=== PATIENT | female | born 1990 | race Caucasian/White ===

== ENCOUNTER 2016-10-08 16:31 | Emergency (ER) | payer SELFPAY ==
[~2016-10-08] VITALS: Ht 177.8 cm; Wt 74.8 kg
--- NOTE | 2016-10-08 17:04 | ED Integumentary General ---
General Chief Complaint: Bite-Animal/Human/Insect Stated Complaint: SPIDER BITE L LEG Nursing Triage Note: ARRIVED VIA AMB TO ROOM 08 WITH COMPLAINTS OF SPIDER BITE LEFT INNER THIGH. PT HAS MARKED THE INCREASE OF REDNESS WITH A MARKER. Source: patient Exam Limitations: no limitations History of Present Illness Time seen by provider: 16:50 Initial Comments Here with report of possible spider bite to the left inner thigh that occurred a couple days ago. Patient admits to crawling under her porch to fix a plumbing issue a couple days ago and thinks it may have been ordered occurred. Noted redness increasing yesterday. She has the circled. Redness increased this morning and that is also circled but does not appear to be exceeding that kl[place]. There is a central dark black core of approximately 1 x 2 mm. States that she feels a little shaky. Does report history of anemia. Timing/Duration: yesterday, getting worse Severity: mild Location: extremities Possible Cause: insect bite Associated Symptoms: edema, No fever, swelling/mass/lumps, No tingling Allergies and Home Medications Allergies Coded Allergies: No Known Drug Allergies (Unverified , 10/08/16) Home Medications Sulfamethoxazole/Trimethoprim 1 Each Tablet, 1 EACH PO BID, #14 Ref 0 Prescribed by: JESUSITA ALBERTS on 10/08/16 1705 Constitutional: see HPI, No chills, No fever, weakness Respiratory: no symptoms reported Cardiovascular: no symptoms reported Gastrointestinal: no symptoms reported, No nausea, No vomiting Skin: see HPI, change in color, lesions Psychiatric/Neurological: See HPI Past Exiucvr-Pvitib-Kgjpmz Hx Patient Social History Alcohol Use: Occasionally Uses Recreational Drug Use: No Smoking Status: Current Everyday Smoker Type Used: Cigarettes Recent Foreign Travel: No Contact w/Someone Who Travel: No Recent Infectious Disease Expo: No Surgeries HX Surgeries: Yes Surgeries: Appendectomy Respiratory Hx Respiratory Disorders: No Cardiovascular Hx Cardiac Disorders: No Neurological Hx Neurological Disorders: No Genitourinary Hx Genitourinary Disorders: No Gastrointestinal Hx Gastrointestinal Disorders: No Musculoskeletal Hx Musculoskeletal Disorders: No Blood Transfusions Hx Blood Disorders: Yes (anemia) Hx of Blood Transfusion 2 units transfused previously Reviewed Nursing Assessment Reviewed/Agree w Nursing PMH: Yes Family Medical History Significant Family History: No Pertinent Family Hx Physical Exam Vital Signs Vital Sign - Last 12Hours 10/08/16 16:50 Temp 98.6 Pulse 83 Resp 16 B/P (MAP) 137/90 Pulse Ox 98 Capillary Refill : Less Than 3 Seconds General Appearance: WD/WN, no apparent distress Cardiovascular: regular rate, rhythm, no murmur Respiratory: lungs clear, normal breath sounds Extremities: normal range of motion, no pedal edema Neurologic/Psychiatric: alert, oriented x 3 Skin: warm/dry Skin Problem Location: lower extremities Skin Problem Character: erythema, warm, other (5 x 5 cm area of erythema with 2 x 2 centimeter area of induration surrounding a central 1 x 2 mm area of blackened core. No obvious fluctuance.) Progress/Results/Core Measures Results/Orders Lab Results Laboratory Tests Test 10/08/16 17:07 Range/Units White Blood Count 7.4 4.3-11.0 10^3/uL Red Blood Count 4.75 4.35-5.85 10^6/uL Hemoglobin 13.9 11.5-16.0 G/DL Hematocrit 42 35-52 % Mean Corpuscular Volume 88 80-99 FL Mean Corpuscular Hemoglobin 29 25-34 PG Mean Corpuscular Hemoglobin Concent 33 32-36 G/DL Red Cell Distribution Width 13.0 10.0-14.5 % Platelet Count 223 130-400 10^3/uL Mean Platelet Volume 9.9 7.4-10.4 FL Neutrophils (%) (Auto) 55 42-75 % Lymphocytes (%) (Auto) 36 12-44 % Monocytes (%) (Auto) 7 0-12 % Eosinophils (%) (Auto) 1 0-10 % Basophils (%) (Auto) 0 0-10 % Neutrophils # (Auto) 4.1 1.8-7.8 X 10^3 Lymphocytes # (Auto) 2.7 1.0-4.0 X 10^3 Monocytes # (Auto) 0.6 0.0-1.0 X 10^3 Eosinophils # (Auto) 0.1 0.0-0.3 10^3/uL Basophils # (Auto) 0.0 0.0-0.1 10^3/uL My Orders Orders - JESUSITA ALBERTS MD Cbc With Automated Diff (10/08/16 16:57) Vital Signs/I&O Vital Sign - Last 12Hours 10/08/16 16:50 Temp 98.6 Pulse 83 Resp 16 B/P (MAP) 137/90 Pulse Ox 98 Blood Pressure Mean: 106 Progress Note : Progress Note Seen and evaluated. CBC ordered. Antibiotic ointment and Band-Aid over wound. Discharged home with return precautions. Patient verbalize understanding instructions and agreement with plan. Departure Impression Impression: Primary Impression: Spider bite wound Qualified Codes: T63.304A - Toxic effect of unspecified spider venom, undetermined, initial encounter Disposition: HOME, SELF-CARE Condition: Stable Departure-Patient Inst. Referrals: NO,LOCAL PHYSICIAN (PCP/Family) Primary Care Physician Patient Instructions: Spider Bites Add. Discharge Instructions: All discharge instructions reviewed with patient and/or family. Voiced understanding. Take medications as directed. You may use ibuprofen 800 mg every 8 hours as needed for pain. You may use Tylenol 1000 mg every 8 hours as needed for pain. Drink plenty of fluids. Follow-up with your Dr. in a few days for recheck as needed. Return for worse pain, swelling, weakness, foul-smelling drainage, markedly increasing redness or other concerns as needed. Use antibiotic ointment and and 8 over wound twice daily for the next 7 days. Scripts Sulfamethoxazole/Trimethoprim (Sulfamethoxazole-Tmp Ds Tablet) 1 Each Tablet 1 EACH PO BID, #14 TAB 0 Refills Prov: JESUSITA ALBERTS MD 10/08/16 JESUSITA ALBERTS MD Oct 08, 2016 17:04
[2016-10-08] MEDS ORDERED: SULF-222 PO (17:05)
[2016-10-08 17:17] LABS: BASOPHILS % (AUTO) 0 % (0-10); EOSINOPHILS # (AUTO) 0.1 10^3/uL (0.0-0.3); EOSINOPHILS % (AUTO) 1 % (0-10); LYMPHOCYTES # (AUTO) 2.7 X 10^3 (1.0-4.0); LYMPHOCYTES % (AUTO) 36 % (12-44); MEAN CORPUSCULAR HEMOGLOBIN 29 PG (25-34); MEAN CORPUSCULAR HGB CONC 33 G/DL (32-36); MEAN CORPUSCULAR VOLUME 88 FL (80-99); MEAN PLATELET VOLUME 9.9 FL (7.4-10.4); MONOCYTES # (AUTO) 0.6 X 10^3 (0.0-1.0); MONOCYTES % (AUTO) 7 % (0-12); NEUTROPHILS # (AUTO) 4.1 X 10^3 (1.8-7.8); NEUTROPHILS % (AUTO) 55 % (42-75); PLATELET COUNT 223 10^3/uL (130-400); RED BLOOD COUNT 4.75 10^6/uL (4.35-5.85); WHITE BLOOD COUNT 7.4 10^3/uL (4.3-11.0)
[2016-10-08 17:28] VITALS: BP 137/90
== END 2016-10-08 17:28 | disposition home or self-care (01) ==
LOC: EDUNIT# 16:31 → ER 16:34
DX: S70.362A Insect bite (nonvenomous), left thigh, initial encounter (principal); F17.210 Nicotine dependence, cigarettes, uncomplicated; Z90.49 Acquired absence of other specified parts of digestive tract; Z86.2 Personal history of diseases of the blood and blood-forming organs and certain disorders involving the immune mechanism; W57.XXXA Bitten or stung by nonvenomous insect and other nonvenomous arthropods, initial encounter
CPT/HCPCS: 36415; 85025; 99283

== ENCOUNTER 2017-01-26 20:12 | Emergency (ER) | payer SELFPAY ==
[~2017-01-26] VITALS: Ht 180.3 cm; Wt 79.4 kg
[~2017-01-26 20:12] MED LIST: SULF-222 PO
--- NOTE | 2017-01-26 20:23 | ED EENT ---
History of Present Illness General Chief Complaint: Dental Problems/Pain Stated Complaint: SWOLLEN JAW Source: patient Exam Limitations: no limitations History of Present Illness Time seen by provider: 20:21 Initial Comments Right lower jaw swelling x12 hours. No fevers. Has had a tooth in this area bothering her for quite a while. Does not have a dentist. Timing/Duration: abrupt Severity: moderate Location: dental Associated Symptoms: facial pain/swelling Allergies and Home Medications Allergies Coded Allergies: No Known Drug Allergies (Unverified , 10/08/16) Home Medications Sulfamethoxazole/Trimethoprim 1 Each Tablet, 1 EACH PO BID, #14 Ref 0 Prescribed by: JESUSITA ALBERTS on 10/08/16 1311 Review of Systems Constitutional: see HPI Eyes: No Symptoms Reported Ears: No Symptoms Reported Nose: no symptoms reported Mouth: see HPI, pain, swelling Throat: no symptoms reported Respiratory: no symptoms reported Cardiovascular: no symptoms reported Gastrointestinal: no symptoms reported Musculoskeletal: no symptoms reported Skin: no symptoms reported Neurological: No Symptoms Reported Hematologic/Lymphatic: No Symptoms Reported Immunological/Allergic: no symptoms reported Past Edeoxzz-Uezgcr-Ujuixv Hx Patient Social History Type Used: Cigarettes Recent Foreign Travel: No Contact w/Someone Who Travel: No Recent Hopitalizations: No Surgeries History of Surgeries: Yes Surgeries: Appendectomy Respiratory History of Respiratory Disorde: No Cardiovascular History of Cardiac Disorders: No Neurological History of Neurological Disord: No Genitourinary History of Genitourinary Disor: No Gastrointestinal History of Gastrointestinal Di: No Musculoskeletal History of Musculoskeletal Dis: No Endocrine History of Endocrine Disorders: No HEENT History of HEENT Disorders: No Cancer History of Cancer: No Psychosocial History of Psychiatric Problem: No Integumentary History of Skin or Integumenta: Yes Skin/Integumentary Disorders: Recent Skin Changes Blood Transfusions History of Blood Disorders: Yes (ANEMIA WITH BLOOD TRANSFUSION X2) Family Medical History Significant Family History: No Pertinent Family Hx Physical Exam Vital Signs Vital Sign - Last 12Hours 01/26/17 20:16 Temp 98.6 Pulse 99 Resp 18 B/P (MAP) 134/95 Pulse Ox 98 O2 Delivery Room Air General Appearance: WD/WN, no apparent distress Eyes: bilateral eye normal inspection, bilateral eye PERRL, bilateral eye EOMI Ears: bilateral ear auricle normal, bilateral ear canal normal, bilateral ear TM normal Mouth/Throat: normal mouth inspection, pharynx normal, other (Right mandible swelling but no fluctuance on buccal mucosa to suggest drainable abscess) Neck: non-tender, full range of motion Respiratory: normal breath sounds, no respiratory distress, no accessory muscle use Gastrointestinal: normal bowel sounds, non tender, soft Neurologic/Psychiatric: alert, normal mood/affect, oriented x 3 Skin: normal color, warm/dry Progress/Results/Core Measures Results/Orders Lab Results Laboratory Tests Test 01/26/17 20:27 Range/Units White Blood Count 10.2 4.3-11.0 10^3/uL Red Blood Count 4.15 L 4.35-5.85 10^6/uL Hemoglobin 12.8 11.5-16.0 G/DL Hematocrit 38 35-52 % Mean Corpuscular Volume 91 80-99 FL Mean Corpuscular Hemoglobin 31 25-34 PG Mean Corpuscular Hemoglobin Concent 34 32-36 G/DL Red Cell Distribution Width 13.3 10.0-14.5 % Platelet Count 208 130-400 10^3/uL Mean Platelet Volume 10.0 7.4-10.4 FL Neutrophils (%) (Auto) 71 42-75 % Lymphocytes (%) (Auto) 22 12-44 % Monocytes (%) (Auto) 7 0-12 % Eosinophils (%) (Auto) 1 0-10 % Basophils (%) (Auto) 0 0-10 % Neutrophils # (Auto) 7.3 1.8-7.8 X 10^3 Lymphocytes # (Auto) 2.2 1.0-4.0 X 10^3 Monocytes # (Auto) 0.7 0.0-1.0 X 10^3 Eosinophils # (Auto) 0.1 0.0-0.3 10^3/uL Basophils # (Auto) 0.0 0.0-0.1 10^3/uL Sodium Level 138 135-145 MMOL/L Potassium Level 4.0 3.6-5.0 MMOL/L Chloride Level 103 98-107 MMOL/L Carbon Dioxide Level 26 21-32 MMOL/L Anion Gap 9 5-14 MMOL/L Blood Urea Nitrogen 7 7-18 MG/DL Creatinine 0.72 0.60-1.30 MG/DL Estimat Glomerular Filtration Rate > 60 BUN/Creatinine Ratio 10 Glucose Level 88 70-105 MG/DL Calcium Level 9.5 8.5-10.1 MG/DL My Orders Orders - ULI HOUGH APRN Cbc With Automated Diff (01/26/17 20:20) Basic Metabolic Panel (01/26/17 20:20) Saline Lock/Iv-Start (01/26/17 20:20) Clindamycin Injection (Cleocin Injection (01/26/17 20:30) Ketorolac Injection (Toradol Injection) (01/26/17 20:30) Ct Maxillofacial W (01/26/17 20:20) Iohexol Injection (Omnipaque 350 Mg/Ml 1 (01/26/17 20:30) Ns (Ivpb) (Sodium Chloride 0.9% Ivpb Bag (01/26/17 20:30) Medications Given in ED Current Medications Medications Dose Ordered Sig/Rosa Route Start Time Stop Time Status Last Admin Dose Admin Clindamycin Phosphate 900 mg/ Sodium Chloride 56 ml @ 100 mls/hr ONCE ONCE IV 01/26/17 20:30 01/26/17 21:03 01/26/17 20:53 100 MLS/HR Iohexol 100 ml ONCE ONCE IV 01/26/17 20:30 01/26/17 20:31 UNV 01/26/17 20:39 80 ML Ketorolac Tromethamine 30 mg ONCE ONCE IVP 01/26/17 20:30 01/26/17 20:31 DC 01/26/17 20:54 30 MG Sodium Chloride 100 ml ONCE ONCE IV 01/26/17 20:30 01/26/17 20:31 UNV 01/26/17 20:39 100 ML Vital Signs/I&O Vital Sign - Last 12Hours 01/26/17 20:16 Temp 98.6 Pulse 99 Resp 18 B/P (MAP) 134/95 Pulse Ox 98 O2 Delivery Room Air Diagnostic Imaging Diagonstic Imaging: CT Comments NAME: RIKY FREGOSO [facility] REC#: [id number] PT STATUS: REG ER : 1990 PHYSICIAN: ULI HOUGH APRN ADMIT DATE: 01/26/17/ER Draft Date of Exam:01/26/17 CT MAXILLOFACIAL W PROCEDURE: CT maxillofacial with contrast. TECHNIQUE: After intravenous administration of contrast, axial images were obtained through the face and reformatted into coronal and sagittal planes. INDICATION: Right jaw swelling. COMPARISON: None FINDINGS: There may be slight asymmetric stranding of the subcutaneous soft tissues of the right cheek and perhaps slight asymmetric skin thickening. No distinct measurable mass is identified. Additionally, there is no focal fluid collection. There is no soft tissue emphysema. No unexpected radiopaque foreign bodies are seen. No other focal soft tissue masses are identified. Cervical lymph nodes are mildly prominent, bilaterally. There is a 0.9 x 1.3 cm perimandibular lymph node just anterior to the right submandibular glands (image 17, series 7). Prominent cervical lymph node on the left is identified just anterior to the sternocleidomastoid muscle at the level of angle of mandible and measures 1.8 x 1.2 cm. Included portions of paranasal sinuses show mucosal retention cyst versus polyp in left maxillary sinus and minimal opacification of posterior left ethmoid air cell. No abnormal air-fluid levels are seen. There is no CT evidence of acute fracture or dislocation of the facial bones. Multiple dental caries, however, are identified. There are multiple areas of prominent periapical lucency involving the bilateral mandibular molars concerning for periapical abscesses. Again, no soft tissue fluid collections are seen to suggest soft tissue abscess. IMPRESSION: 1. Multiple dental caries. Again, there are multiple periapical lucencies suggestive of periapical abscesses, greatest involving the right mandibular molars. 2. There is mild asymmetric soft tissue stranding and skin thickening of the right cheek overlying the right mandible. This is likely reactive to patient's dental caries. There is no distinct CT evidence of soft tissue abscess. 3. Prominent cervical lymph nodes bilaterally; possibly reactive as well. Dictated on workstation # [id number] Dict: 01/26/172051 Trans: 01/26/172099 [id number] Interpreted by: VICTOR HUGO OLSON MD Electronically signed by: Departure Impression Impression: Primary Impression: Dental caries Disposition: HOME, SELF-CARE Condition: Stable Departure-Patient Inst. Decision time for Depature: 21:03 Referrals: NO,LOCAL PHYSICIAN (PCP/Family) Primary Care Physician Patient Instructions: Tooth Abscess (DC) Add. Discharge Instructions: 1. Warm compresses to this area 2. Return to ER for concerns 3. Follow-up with your dentist tomorrow. If you do not have a dentist go to the [facility] on and [address] to schedule an appointment. Return to ER for any fevers. Once these pain pills ran out, take Tylenol and Motrin All discharge instructions reviewed with patient and/or family. Voiced understanding. Scripts Hydrocodone/Acetaminophen ([place] 5-325 Tablet) 1 Each Tablet 1 EACH PO Q4H Y for PAIN-SEVERE TO BREAKTHROUGH, #14 TAB Do not fill unless penicillin is also filled Prov: ULI HOUGH APRN 01/26/17 Penicillin V Potassium (Penicillin V Potassium) 500 Mg Tablet 500 MG PO QID, #28 TAB Prov: ULI HOUGH APRN 01/26/17 ULI HOUGH APRN Jan 26, 2017 20:23
[2017-01-26] MEDS ORDERED: NS 100 ML (IVPB) BAG IV ONE (20:30)
[2017-01-26] MEDS ORDERED: KETOROLAC 30 MG/ML VIAL IVP ONE (20:30)
[2017-01-26] MEDS ORDERED: IOHEXOL 350 MG/ML 100 ML (OMNIPAQUE 350) VIAL IV ONE (20:30)
[2017-01-26] MEDS ORDERED: CLINDAMYCIN INJECTION 900 MG in NS (IVPB) 50 ML IV ONE (20:30)
[2017-01-26 20:43] LABS: BASOPHILS % (AUTO) 0 % (0-10); EOSINOPHILS # (AUTO) 0.1 10^3/uL (0.0-0.3); EOSINOPHILS % (AUTO) 1 % (0-10); LYMPHOCYTES # (AUTO) 2.2 X 10^3 (1.0-4.0); LYMPHOCYTES % (AUTO) 22 % (12-44); MEAN CORPUSCULAR HEMOGLOBIN 31 PG (25-34); MEAN CORPUSCULAR HGB CONC 34 G/DL (32-36); MEAN CORPUSCULAR VOLUME 91 FL (80-99); MONOCYTES # (AUTO) 0.7 X 10^3 (0.0-1.0); MONOCYTES % (AUTO) 7 % (0-12); NEUTROPHILS # (AUTO) 7.3 X 10^3 (1.8-7.8); NEUTROPHILS % (AUTO) 71 % (42-75); PLATELET COUNT 208 10^3/uL (130-400); RED BLOOD COUNT 4.15 10^6/uL (4.35-5.85); RED CELL DISTRIBUTION WIDTH 13.3 % (10.0-14.5); WHITE BLOOD COUNT 10.2 10^3/uL (4.3-11.0)
[2017-01-26 20:51] LABS: ANION GAP 9 MMOL/L (5-14); BLOOD UREA NITROGEN 7 MG/DL (7-18); BUN/CREATININE RATIO 10; CALCIUM 9.5 MG/DL (8.5-10.1); CARBON DIOXIDE 26 MMOL/L (21-32); CHLORIDE 103 MMOL/L (98-107); CREATININE SERUM 0.72 MG/DL (0.60-1.30); GFR ESTIMATED > 60; GLUCOSE 88 MG/DL (70-105); SODIUM 138 MMOL/L (135-145)
--- NOTE | 2017-01-26 21:01 | Diagnostic Imaging Report ---
PROCEDURE: CT maxillofacial with contrast. TECHNIQUE: After intravenous administration of contrast, axial images were obtained through the face and reformatted into coronal and sagittal planes. INDICATION: Right jaw swelling. COMPARISON: None FINDINGS: There may be slight asymmetric stranding of the subcutaneous soft tissues of the right cheek and perhaps slight asymmetric skin thickening. No distinct measurable mass is identified. Additionally, there is no focal fluid collection. There is no soft tissue emphysema. No unexpected radiopaque foreign bodies are seen. No other focal soft tissue masses are identified. Cervical lymph nodes are mildly prominent, bilaterally. There is a 0.9 x 1.3 cm perimandibular lymph node just anterior to the right submandibular glands (image 17, series 7). Prominent cervical lymph node on the left is identified just anterior to the sternocleidomastoid muscle at the level of angle of mandible and measures 1.8 x 1.2 cm. Included portions of paranasal sinuses show mucosal retention cyst versus polyp in left maxillary sinus and minimal opacification of posterior left ethmoid air cell. No abnormal air-fluid levels are seen. There is no CT evidence of acute fracture or dislocation of the facial bones. Multiple dental caries, however, are identified. There are multiple areas of prominent periapical lucency involving the bilateral mandibular molars concerning for periapical abscesses. Again, no soft tissue fluid collections are seen to suggest soft tissue abscess. IMPRESSION: 1. Multiple dental caries. Again, there are multiple periapical lucencies suggestive of periapical abscesses, greatest involving the right mandibular molars. 2. There is mild asymmetric soft tissue stranding and skin thickening of the right cheek overlying the right mandible. This is likely reactive to patient's dental caries. There is no distinct CT evidence of soft tissue abscess. 3. Prominent cervical lymph nodes bilaterally; possibly reactive as well. Dictated by: Dictated on workstation # [id number]
[2017-01-26] MEDS ORDERED: RX-AMOXICILLIN 500 MG CAP #3 PPK PO ONE (21:03)
[2017-01-26] MEDS ORDERED: PENI500T PO (21:05)
[2017-01-26] MEDS ORDERED: HYDR-757 PO (21:05)
[2017-01-26] MEDS ORDERED: RX-PENICILLIN V K 250MG TAB PPK#4 PO STA (21:06)
[2017-01-26] MEDS ORDERED: HYDROcodone/APAP 5 MG/325 MG (LORTAB) TAB PO ONE (21:15)
[2017-01-26] MEDS ORDERED: RX-AMOXICILLIN 500 MG CAP #3 PPK PO STA (21:16)
[2017-01-26 21:24] VITALS: BP 131/88
== END 2017-01-26 21:24 | disposition home or self-care (01) ==
LOC: EDUNIT# 20:12 → ER 20:14
DX: K04.7 Periapical abscess without sinus (principal); Z86.2 Personal history of diseases of the blood and blood-forming organs and certain disorders involving the immune mechanism; Z90.49 Acquired absence of other specified parts of digestive tract
CPT/HCPCS: 36415; 70487; 80048; 85025

== ENCOUNTER 2021-06-10 17:35 | Emergency (ER) | payer SELFPAY ==
[~2021-06-10] VITALS: Ht 175.3 cm; Wt 91.2 kg
[~2021-06-10 17:35] MED LIST changes: +HYDR-4226 PO; +PENI500T PO
[2021-06-10 18:11] VITALS: BP 128/97
[2021-06-10] MEDS ORDERED: RX-TRIMETH/SULFA. 160-800 MG (BACTRIM DS) TAB PPK#2 PO STA (18:20)
[2021-06-10] MEDS ORDERED: SULF1TAB38 PO (18:23)
[2021-06-10] MEDS ORDERED: PRD20T PO (18:23)
--- NOTE | 2021-06-10 18:24 | ED Integumentary General ---
General Chief Complaint: Bite-Animal/Human/Insect Stated Complaint: INSECT BITE/REDNESS ON L HIP Source: patient History of Present Illness Date Seen by Provider: Jun 10, 2021 Time Seen by Provider: 18:15 Initial Comments PT ARRIVES VIA POV FROM HOME STATES AROUND 2100 LAST PM, SHE NOTICED A RED SPOT ON HER LEFT HIP/ILIAC CREST AREA STATES THE AREA STINGS AND HEWITT A LITTLE BIT THE AREA OF REDNESS HAS GOTTEN MUCH BIGGER TODAY NO FEVER NO DRAINAGE NO STREAKS NO KNOWN INJURY, BUT STATES SHE DOES LIVE IN A 89 Y.O. HOME AND HAS LOTS OF SPIDERS, AND HAS HAD A BROWN RECLUSE SPIDER BITE ON HER BACK IN THE PAST AND THIS IS SIMILAR. NO HISTORY OF MRSA NO CHRONIC ILLNESSES PT IS UP TO DATE ON TETANUS VACCINE PCP: [facility]AR Allergies and Home Medications Allergies Coded Allergies: No Known Drug Allergies (Unverified , 10/08/16) Patient Home Medication List Home Medication List Reviewed: Yes Hydrocodone/Acetaminophen (Hydrocodone/Acetaminophen 5 MG/325 MG TAB) 1 Each Tablet, 1 EACH PO Q4H PRN for PAIN-SEVERE TO BREAKTHROUGH Prescribed by: ULI HOUGH on 01/26/172104 Penicillin V Potassium (Penicillin V Potassium) 500 Mg Tablet, 500 MG PO QID Prescribed by: LUI HOUGH on 01/26/172104 Prednisone (Prednisone) 20 Mg Tab, 40 MG PO DAILY Prescribed by: LIONEL JAFFE on 06/10/211822 Sulfamethoxazole/Trimethoprim (Sulfamethoxazole-Tmp Ds Tablet) 1 Each Tablet, 1 EACH PO BID Prescribed by: JESUSITA ALBERTS on 10/08/16 170 Sulfamethoxazole/Trimethoprim (Bactrim Ds Tablet) 1 Each Tablet, 1 EACH PO BID Prescribed by: LIONEL JAFFE on 06/10/211822 Review of Systems Review of Systems Constitutional: no symptoms reported Musculoskeletal: no symptoms reported Skin: see HPI Psychiatric/Neurological: No Symptoms Reported Past Buaygru-Uibrfa-Tskzpx Hx Patient Social History Tobacco Use?: Yes Tobacco type used: Cigarettes Smoking Status: Current Everyday Smoker Use of E-Cig and/or Vaping dev: No Substance use?: Yes Substance type: Marijuana Alcohol Use?: Yes Alcohol Frequency: Once in a while Immunizations Up To Date Tetanus Booster (TDap): Less than 5yrs Influenza Vaccine Up-to-Date: Yes; Up-to-Date Past Medical History Surgeries: Yes Appendectomy Respiratory: No Cardiac: No Neurological: No Reproductive Disorders: No Genitourinary: No Gastrointestinal: No Musculoskeletal: No Endocrine: No HEENT: No Cancer: No Psychosocial: No Integumentary: Yes (BROWN RECLUSE BITE ON BACK IN PAST) Blood Disorders: Yes (ANEMIA WITH BLOOD TRANSFUSION X2) Family Medical History No Pertinent Family Hx Physical Exam Vital Signs Vital Signs - First Documented 06/10/21 18:11 Temp 36.5 Pulse 101 Resp 20 B/P (MAP) 128/97 (107) Pulse Ox 97 O2 Delivery Room Air Capillary Refill : General Appearance: WD/WN, no apparent distress, other (HAIR IS BRIGHT PURPLE AND [place] GREEN) Neurologic/Psychiatric: no motor/sensory deficits, alert, normal mood/affect, oriented x 3 Skin: normal color, warm/dry, other (RIGHT UPPER HIP/ILIAC CREST AREA WITH 1X2 CM ARE OF CENTRAL DUSKINESS AND SLIGHT INDURATION, AND 9 X9 CM AREA OF SURROUNDING ERYTHEMA. NO FLUCTUANCE. NO DRAINAGE. NO STREAKS. NO SIGNIFICANT TENDERNESS. ) Progress/Results/Core Measures Results/Orders My Orders Orders - LIONEL JAFFE DO Rx-Trimeth/Sulfameth Ds Tab (Rx-Bactrim/ (06/10/21 18:20) Prednisone Tablet (Deltasone Tablet) (06/10/21 18:30) Vital Signs/I&O 06/10/21 18:11 Temp 36.5 Pulse 101 Resp 20 B/P (MAP) 128/97 (107) Pulse Ox 97 O2 Delivery Room Air Departure Impression Primary Impression: CELLULITIS LEFT ILIAC CREST Additional Impression: POSSIBLE SPIDER BITE Disposition: 01 HOME, SELF-CARE Condition: Stable Departure-Patient Inst. Decision time for Depature: 18:21 Referrals: [facility] (PCP/Family) Primary Care Physician Patient Instructions: Cellulitis (Skin Infection), Adult (DC), Insect Bites and Stings (DC), Spider Bites Add. Discharge Instructions: ICE TO AREA AT 20 MINUTE INTERVALS TYLENOL AND MOTRIN NEEDED FOR PAIN FOLLOW UP WITH [facility] IN 2-3 DAYS IF NO BETTER, RETURN TO ER IF WORSE All discharge instructions reviewed with patient and/or family. Voiced understanding. Scripts Prednisone (Prednisone) 20 Mg Tab 40 MG PO DAILY, #6 TAB 0 Refills Prov: LIONEL JAFFE DO 06/10/21 Sulfamethoxazole/Trimethoprim (Bactrim Ds Tablet) 1 Each Tablet 1 EACH PO BID, #20 TAB Prov: LIONEL JAFFE DO 06/10/21 LIONEL JAFFE DO Jun 10, 2021 18:24
[2021-06-10] MEDS ORDERED: predniSONE 20 MG TAB PO ONE (18:30)
== END 2021-06-10 18:34 | disposition home or self-care (01) ==
LOC: EDUNIT# 17:35 → ER 17:37
DX: L03.115 Cellulitis of right lower limb (principal); F17.210 Nicotine dependence, cigarettes, uncomplicated
CPT/HCPCS: 99283